=== PATIENT | male | born 1945 | race Caucasian/White ===

== ENCOUNTER → 2024-11-28 12:04 | Outpatient (REF) | payer MEDICARE, OTHER, SELFPAY ==
[2024-11-28 12:54] LABS: Hematocrit 41.8 % (39.0-52.0); Hemoglobin 12.8 g/dL (13.0-18.0); Mean Corp Hgb Conc. 30.6 g/dL (33.0-37.0); Mean Corpuscular Volume 87.4 fL (80.0-94.0); Nucleated Red Blood Cells % 0 % (-); Platelet Count 229 10^3/uL (130-400); Red Cell Dist. Width 16.6 % (11.5-14.5)
[2024-11-28 13:41] LABS: ALT (SGPT) 24 U/L (0-50); AST (SGOT) 22 U/L (17-59); Albumin 4.7 g/dl (3.5-5.0); Alkaline Phosphatase 87 U/L (38-126); Blood Urea Nitrogen 24 mg/dl (9-20); Calcium 10.7 mg/dl (8.4-10.2); Carbon Dioxide 26 mmol/L (22-30); Chloride 108 mmol/L (98-107); Glucose 99 mg/dl (70-99); Potassium 4.4 mmol/L (3.5-5.1); Sodium 142 mmol/L (135-145); Total Protein 7.1 g/dl (6.3-8.2); eGFR 51.13
== END ==
LOC: SDSPAT 12:04
PROVIDERS: ATTENDING PHYSICIAN Internal Medicine Cardiovascular Disease; FAMILY PHYSICIAN Family Medicine; OTHER PHYSICIAN Internal Medicine Cardiovascular Disease
DX: I50.22 Chronic systolic (congestive) heart failure (principal)
CPT/HCPCS: 36415; 80053; 85025; 93005

== ENCOUNTER 2024-12-02 12:21 | Inpatient (IN) | payer MEDICARE, OTHER, SELFPAY ==
[2024-12-01 09:40] VITALS: BMI 20.8
[2024-12-02] VITALS (7 sets, daily range): BP systolic 94–127; BP diastolic 60–77; BMI 20.8
--- NOTE | 2024-12-02 10:10 | W.ICD.CONTRA ---
Post ICD/CUSTOMER SOLUTIONS REPRESENTATIVE-D
-
History of HI?: Yes
LV Function
Left ventricular function study result?: Ejection Fraction </= 35%
ACEI/ARB/ARNI
Patient already on ACEI/ARB/ARNI: Yes
Beta-Allie
Patient already on Beta Allie: Yes
[2024-12-02] MEDS: VANCOCIN 200 IV (11:50)
[2024-12-02] MEDS: STERILE WATER FOR INJECTION 10 ML IV (12:15)
[2024-12-02] MEDS: AZACTAM 2000 MG IV (12:15)
--- NOTE | 2024-12-02 15:10 | ITS.CL.ICD ---
Finisher Machine - ICD
Implantable Cardioverter Defibrillator
Procedure Report:
Date of Procedure: December 02, 2024
Patient : 1945
Procedures: Venogram, LV lead insertion, upgrade to FITTER/WELDER-D generator and system
Indication: 1) Class III CHF, LVEF 25% 2) left bundle Branch Block, QRS 160
Implants:
Pulse Generator: [employer] model G247 serial #[id number] location left subcutaneous; implanted today
Atrial Lead: [employer] model 7736 serial #[id number] implanted 2015
Right Ventricular Lead: [employer] model 0293 serial #[id number] implanted 2015
Left Ventricular Lead: [employer]; Model# [id number]; Serial# [id number] implanted today
Explanted generator:
[employer] model D142 serial #[id number] implanted 2015
Technique: The patient was prepped and draped in the usual fashion. 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 Local
anesthetic was applied to the left prepectoral subcutaneous tissue. A 4 inch incision was made. The left axillary vein was accessed��without difficulty. A subcutaneous pocket was CREATED. Hemostasis was excellent. The leads were introduced with
hemostatic peel away introducer sheaths. The coronary sinus was accessed with the aid of the Attain system. The left ventricular lead was placed in the high anterolateral vein to the mid ventricle. An active-fixation lead was chosen although given
the diminutive vessel we could not transmit the torque to actively fix the device and despite multiple rotations the lead was only partially fixed and was treated as a passive lead. 10 volt pacing did not capture the diaphragm. The leads were
secured to the pectoralis muscle and fascia. The leads were appropriately attached to the device. The pocket was irrigated with antibiotic solution. The device and leads were placed in the pocket and the device was secured to pectoralis muscle and
facia. The incision was closed with absorbable sutures. The estimated blood loss was minimal. There were no complications. Device based testing was performed as described below. IV contrast total: 30 cc.
System Analysis:
RA lead: P: 2.5 mV; Threshold: 0.7 V @ 0.5 ms; Impedance: 562 ohms.
RV lead: R: 19.4 mV; Threshold: 1.1 V @ 0.5 ms; Impedance: 462 ohms.
LV lead: R: 9.3 mV; Threshold: 0.8 V @ 0.5 ms; Impedance: 903 ohms.
Final Programming: Tachy: VT/VF:188; Angel: DDDR 60-120.
Conclusion: Upgrade to FITTER/WELDER-D.
Recommendation: Routine post BiV ICD care. Continue daily aspirin. Resume Plavix in 5 days. Outpatient wound check with our group in 7 days
cc: Dr. Uriel Kidd
--- NOTE | 2024-12-02 15:27 | CM ---
Chart reviewed. Patient is independent of ADLS, lives with his in a [address], [address], ambulates with a SPC. Plan is for the patient to return home. CM to follow
--- NOTE | 2024-12-02 17:14 | PTCARENOTE ---
received patient from ear mold laboratory technician s/p CS lead DDD 60 ,- 130, LCW, Acuseal intact, no hematoma, no ecchymosis, no pain. monitor shows Vpaced, VSS. patient oriented to room and surroundings. post chest xray completed. family at bedside.
[2024-12-02] MEDS: FLOMAX 0.8 MG PO (17:30)
[2024-12-02] MEDS: TOPAMAX 25 MG PO (20:15)
[2024-12-02] MEDS: TYLENOL 650 MG PO (20:15)
--- NOTE | 2024-12-02 22:25 | PTCARENOTE ---
Received patient at change of shift. V paced on the monitor, HR in the 70s. L upper chest with Aquacel dressing CDI, soft. Pt complains of 3/10 pain at PPM site, PRN Tylenol administered as per order, see APR. Call sims within reach.
[2024-12-03 03:33] VITALS: BP 116/74
[2024-12-03 04:05] LABS: Hematocrit 38.3 % (39.0-52.0); Hemoglobin 11.9 g/dL (13.0-18.0); Mean Corp Hgb Conc. 31.1 g/dL (33.0-37.0); Mean Corpuscular Volume 86.3 fL (80.0-94.0); Platelet Count 219 10^3/uL (130-400); Red Cell Dist. Width 16.4 % (11.5-14.5)
[2024-12-03 04:23] LABS: Blood Urea Nitrogen 33 mg/dl (9-20); Calcium 10.6 mg/dl (8.4-10.2); Carbon Dioxide 24 mmol/L (22-30); Chloride 109 mmol/L (98-107); Estimated Creatinine Clearance 45 ml/min; Glucose 142 mg/dl (70-99); Potassium 4.6 mmol/L (3.5-5.1); Sodium 139 mmol/L (135-145); eGFR 51.13
[2024-12-03] MEDS: SYNTHROID 75 MCG PO (06:29)
[2024-12-03] MEDS: TYLENOL 650 MG PO (06:34)
[2024-12-03] MEDS: STRIVERDI RESPIMAT 2 PUFF INH (07:27)
[2024-12-03] MEDS: SPIRIVA RESPIMAT 2.5 MCG 2 PUFF INH (07:27)
[2024-12-03 07:51] VITALS: BP 122/64
--- NOTE | 2024-12-03 07:53 | W.PN.CARDCBS ---
Addendum entered and electronically signed by Ad Antonio MD 12/03/24 09:37:
patient seen and examined
agree with REPAIR SERVICE DISPATCHER note and assessment
agree with REPAIR SERVICE DISPATCHER plan
CXR personally reviewed
ECG personally reviewed
exam:
no hematoma at device site
stable lead position
regular
he communicated that he was angry this morning in terms of affect
Impression:
Chronic HFrEF 20%
CAD/history of [place] s/p stenting x3 on DAPT.
ICD 2016
post BiV ICD upgrade 12/02/24
NSVT
LBBB
HTN
HLD
Pulmonary hypertension, 50 mmHg, moderate.
Severe mitral regurgitation on echo August 2024.
AAA endovascularly repaired.
COPD with history of tobacco abuse.
Noninsulin insulin-dependent diabetes.
Hypothyroidism.
GERD.
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
CKD3b
Plan:
no hematoma present (patient has a paucity of soft tissue around device at baseline)
tele AsVpaced
CXR no PTX, leads in good position, new CS lead
Hold Plavix x5 days, continue ASA 81mg daily
HF continue GDMT - metoprolol xl, spironolactone, lisinopril, recommended SGLT2i prefers to discuss initiation with Dr. Kidd at f/u apt
Activity restrictions reviewed
incision check in 1 week at [facility]
continue cardiac care with Dr. Kidd
home today
Original Note:
Today's Communication / Plan
-
post BIV ICD upgrade, stable for d/c home
Impression / Plan
-
PCP: Steven Cantrell DO
CDY: Uriel Kidd MD
Impression:
Chronic HFrEF 20%
CAD/history of [place] s/p stenting x3 on DAPT.
ICD 2016
post BiV ICD upgrade 12/02/24
NSVT
LBBB
HTN
HLD
Pulmonary hypertension, 50 mmHg, moderate.
Severe mitral regurgitation on echo August 2024.
AAA endovascularly repaired.
COPD with history of tobacco abuse.
Noninsulin insulin-dependent diabetes.
Hypothyroidism.
GERD.
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
CKD3b
Plan:
post BiV ICD upgrade
site stable
tele AsVpaced
CXR no PTX, leads in good position, new CS lead
Hold Plavix x5 days, continue ASA 81mg daily
HF continue GDMT - metoprolol xl, spironolactone, lisinopril, recommended SGLT2i prefers to discuss initiation with Dr. Kidd at f/u apt
Activity restrictions reviewed
incision check in 1 week at [facility]
continue cardiac care with Dr. Kidd
home today
Progress Note - Cyber Forensics Analyst
Subjective
Date of Service: December 03, 2024
mild inc pain, denies cp, sob
Objective
Labs:
12/03/24 03:45
12/03/24 03:45
Labs
Hgb 11.9 g/dL (13.0-18.0) L 12/03/24 03:45
Hct 38.3 % (39.0-52.0) L 12/03/24 03:45
Plt Count 219 10^3/uL (130-400) 12/03/24 03:45
Sodium 139 mmol/L (135-145) 12/03/24 03:45
Potassium 4.6 mmol/L (3.5-5.1) 12/03/24 03:45
BUN 33 mg/dl (9-20) H 12/03/24 03:45
Creatinine 1.4 mg/dL (0.7-1.3) H 12/03/24 03:45
Glucose 142 mg/dl (70-99) H 12/03/24 03:45
Vital Signs and I&O:
Vital Signs
Temp Pulse Resp BP Pulse Ox
97.7 F 76 16 116/74 96
12/03/24 03:40 12/03/24 07:36 12/03/24 07:36 12/03/24 03:33 12/03/24 07:36
Vital Signs
Temp Pulse Resp BP Pulse Ox
97.7 F 76 16 116/74 96
12/03/24 03:40 12/03/24 07:36 12/03/24 07:36 12/03/24 03:33 12/03/24 07:36
Intake & Output
12/01/24 12/02/24 12/03/24 12/04/24
06:59 06:59 06:59 06:59
Output Total 200 / 200
Balance -200 / -200
Physical Exam
Physical Exam
NAD, AOX3
S1, S2, RRR, III/ TRACY at apex
CTAB, non labored, no wheeze
SNTND BSx4
L CW site c/d/i no HT
[2024-12-03] MEDS: TOPAMAX 25 MG PO (08:45)
[2024-12-03] MEDS: BUMEX 1 MG PO (08:45)
[2024-12-03] MEDS: PEPCID 20 MG PO (08:45)
[2024-12-03] MEDS: ALDACTONE 25 MG PO (08:46)
[2024-12-03] MEDS: ZESTRIL 5 MG PO (08:46)
--- NOTE | 2024-12-03 09:49 | W.DS.TRANS ---
DC Summary - [employer] Ath[employer]
-
Discharge Instructions:
Sleep Apnea Risk Low
Discharge Diagnosis/Procedures Bi-V ICD upgrade
Diet Low Cholesterol
Driving Restrictions No driving for 1 week
Bathing Restrictions OK to Shower
Instructions:
Stand-Alone Forms: DC Inst - Implanted Device
Changes to Home Medications: No
Discharge Medications:
DC Medications w/original date entered in Medicine in Practice
Allergy Relief Medicine 1 tab PO DAILY 11/26/24
B-complex with vitamin C 1 tab PO DAILY 11/26/24
Men's 50 Plus Multivitamin 1 tab PO DAILY 11/26/24
XyliMelts 1 tab PO DAILY 11/26/24
acetaminophen 325 mg tablet (Tylenol) 650 mg PO Q6H PRN pain 11/26/24
ascorbic acid (vitamin C) 1,000 mg tablet (Vitamin C) 1,000 mg PO DAILY 11/26/24
irxsmtf-ngoidkuqyqoom-bzuytgnz 250 mg-250 mg-65 mg tablet (Excedrin Migraine) 1 tab PO PRN PRN migraine 11/26/24
bumetanide 1 mg tablet 1 mg PO Q48H 11/26/24
cholecalciferol (vitamin D3) 125 mcg (5,000 unit) tablet (Vitamin D3) 125 mcg PO DAILY 11/26/24
clopidogrel 75 mg tablet 75 mg PO DAILY 11/26/24
Held on 12/03/24. Instructions: Resume on 12/07/24.
famotidine 40 mg tablet 40 mg PO BID 11/26/24
finasteride 5 mg tablet 5 mg PO DAILY 11/26/24
fluticasone propionate 50 mcg/actuation nasal spray,suspension (Allergy Relief (fluticasone)) 1 spray intranasal PRN PRN allergies 11/26/24
levothyroxine 75 mcg tablet 75 mcg PO DAILY 11/26/24
lisinopril 5 mg tablet 5 mg PO DAILY 11/26/24
metoprolol succinate 25 mg tablet,extended release 24 hr 25 mg PO DAILY 11/26/24
rosuvastatin 40 mg tablet 40 mg PO DAILY 11/26/24
spironolactone 25 mg tablet 25 mg PO DAILY 11/26/24
tamsulosin 0.4 mg capsule 0.8 mg PO QPM 11/26/24
topiramate 25 mg tablet 25 mg PO BID 11/26/24
umeclidinium 62.5 mcg-vilanterol 25 mcg/actuation powdr for inhalation (Anoro Ellipta) 1 inh inhalation DAILY 11/26/24
aspirin 325 mg tablet 81 mg (0.2492 x 325 mg) PO DAILY #0 tabs 12/03/24
Home Medication Changes
Pending Results: No
--- NOTE | 2024-12-03 10:09 | PTCARENOTE ---
Received patient this morning resting in bed, aquacel left upper chest is dry and intact. Patient seen by cardiology and is ok for discharge. Reviewed discharge instructions with the patient and follow up appointments. He is in disagreement with
holding his plavix and decreasing his asa to 81mg, instructed to discuss this with his car parker. Waiting for his family for transportation home.
--- NOTE | 2024-12-03 11:29 | W.HF.CON ---
Heart Failure
- LV Function
Left ventricular function study result: LV Ejection fraction </= 35%
Ejection Fraction Percentage: 20
- ARNI
Patient already on ARNI: No
Heart Failure ARNI Contraindication: Hypotension
- ACEI/ARB
Patient already on ACEI/ARB: Yes
- Beta Allie
Patient already on Evidence Based Beta Allie: Yes
- Mineralocorticord Receptor Antagonist
Patient already on MRA: Yes
- SGLT-2 Inhibitor
Patient already on SGLT-2 Inhibitor: No
Heart Failure SGLT-2 Inhibitor Contraindication: Patient Refusal
- NYHA CHF Classification
NYHA CHF Classification Level: Class II - Slight limitation by SOB and/or fatigue during mod exertion
- ACC/AHA Stage
ACC/AHA Stage: Stage C: Symptomatic Heart Failure
== END 2024-12-03 10:20 | disposition home or self-care (01) | DRG 277 ==
LOC: IVU 12:21
PROVIDERS: Nurse Practitioner; ADMITTING PHYSICIAN Internal Medicine Cardiovascular Disease; FAMILY PHYSICIAN Family Medicine
PROC: 0JH609Z Insertion of Cardiac Resynchronization Defibrillator Pulse Generator into Chest Subcutaneous Tissue and Fascia, Open Approach (ICD-10-PCS; 2024-12-02)
PROC: 02HL3KZ Insertion of Defibrillator Lead into Left Ventricle, Percutaneous Approach (ICD-10-PCS; 2024-12-02)
PROC: 0JPT0PZ Removal of Cardiac Rhythm Related Device from Trunk Subcutaneous Tissue and Fascia, Open Approach (ICD-10-PCS; 2024-12-02)
DX: I25.10 Atherosclerotic heart disease of native coronary artery without angina pectoris (principal); I13.0 Hypertensive heart and chronic kidney disease with heart failure and stage 1 through stage 4 chronic kidney disease, or unspecified chronic kidney disease; I50.22 Chronic systolic (congestive) heart failure; I47.20 Ventricular tachycardia, unspecified; N18.32 Chronic kidney disease, stage 3b; E78.5 Hyperlipidemia, unspecified; J44.9 Chronic obstructive pulmonary disease, unspecified; E03.9 Hypothyroidism, unspecified; I44.7 Left bundle-branch block, unspecified; I42.9 Cardiomyopathy, unspecified; I27.20 Pulmonary hypertension, unspecified; I34.0 Nonrheumatic mitral (valve) insufficiency; E11.22 Type 2 diabetes mellitus with diabetic chronic kidney disease; I49.3 Ventricular premature depolarization; K21.9 Gastro-esophageal reflux disease without esophagitis; E88.A Wasting disease (syndrome) due to underlying condition; I25.2 Old myocardial infarction; Z86.79 Personal history of other diseases of the circulatory system; Z86.73 Personal history of transient ischemic attack (TIA), and cerebral infarction without residual deficits; Z90.49 Acquired absence of other specified parts of digestive tract; Z95.5 Presence of coronary angioplasty implant and graft; Z79.82 Long term (current) use of aspirin; Z79.890 Hormone replacement therapy; Z79.51 Long term (current) use of inhaled steroids; Z87.891 Personal history of nicotine dependence; Z88.0 Allergy status to penicillin; Z45.02 Encounter for adjustment and management of automatic implantable cardiac defibrillator
CPT/HCPCS: 33225; 33264; 71045; 80048; 85027; 93005; 94640; C1769; C1882; C1892; C1900; Q9967